=== PATIENT | female | born 1975 | race African-American/Black ===

== ENCOUNTER 2021-12-31 11:27 | Day surgery (SDC) | payer BC ==
[2021-12-31 11:53] VITALS: BMI 30.6
[2021-12-31 13:19] VITALS: BP 112/78; PULSE 75; TEMP 97.8
== END 2021-12-31 13:35 | disposition home or self-care (01) ==
LOC: FASU-ENDO 11:27
PROVIDERS: ATTEND Internal Medicine Gastroenterology
PROC: 0DBL8ZX Excision of Transverse Colon, Via Natural or Artificial Opening Endoscopic, Diagnostic (ICD-10-PCS; 2021-12-31)
PROC: 0DBN8ZX Excision of Sigmoid Colon, Via Natural or Artificial Opening Endoscopic, Diagnostic (ICD-10-PCS; 2021-12-31)
PROC: 0DBP8ZX Excision of Rectum, Via Natural or Artificial Opening Endoscopic, Diagnostic (ICD-10-PCS; 2021-12-31)
PROC: 0DBM8ZX Excision of Descending Colon, Via Natural or Artificial Opening Endoscopic, Diagnostic (ICD-10-PCS; 2021-12-31)
PROC: 0DBH8ZX Excision of Cecum, Via Natural or Artificial Opening Endoscopic, Diagnostic (ICD-10-PCS; 2021-12-31)
PROC: 0DBK8ZX Excision of Ascending Colon, Via Natural or Artificial Opening Endoscopic, Diagnostic (ICD-10-PCS; principal; 2021-12-31 12:25)
DX: Z87.19 Personal history of other diseases of the digestive system (principal); K64.0 First degree hemorrhoids; K63.89 Other specified diseases of intestine
CPT/HCPCS: 88305-TC

== ENCOUNTER 2022-03-18 08:57 | Day surgery (SDC) | payer BC ==
[2022-03-14 13:35] VITALS: BMI 30.6
[2022-03-18] MEDS ORDERED: LIDOCAINE HCL/PF 2% SDV 5ML VIAL ONE (09:01)
[2022-03-18] MEDS ORDERED: PROPOFOL 20 ML ONE ×4 (09:01)
[2022-03-18 10:37] VITALS: TEMP 97.2
[2022-03-18 10:46] VITALS: BP 121/90; PULSE 84
== END 2022-03-18 11:03 | disposition home or self-care (01) ==
LOC: FASU-ENDO 08:57
PROVIDERS: ATTEND Internal Medicine Gastroenterology
PROC: 0DB68ZX Excision of Stomach, Via Natural or Artificial Opening Endoscopic, Diagnostic (ICD-10-PCS; 2022-03-18)
PROC: 0DB48ZX Excision of Esophagogastric Junction, Via Natural or Artificial Opening Endoscopic, Diagnostic (ICD-10-PCS; 2022-03-18)
PROC: 0DB98ZX Excision of Duodenum, Via Natural or Artificial Opening Endoscopic, Diagnostic (ICD-10-PCS; principal; 2022-03-18 10:12)
DX: K29.50 Unspecified chronic gastritis without bleeding (principal); K20.90 Esophagitis, unspecified without bleeding; R10.13 Epigastric pain
CPT/HCPCS: 88305-TC; 88342-TC

== ENCOUNTER 2024-05-17 09:14 | Day surgery (SDC) | payer BC ==
[2024-05-15 17:50] VITALS: BMI 28.3
[2024-05-17 09:50] VITALS: RESP 18
[2024-05-17] MEDS ORDERED: LIDOCAINE HCL/PF 2% SDV 5ML VIAL ONE (10:04)
[2024-05-17 10:44] VITALS: PULSE 84; TEMP 98.1
[2024-05-17 11:20] VITALS: BP 116/76
== END 2024-05-17 11:52 | disposition home or self-care (01) ==
LOC: FASU-ENDO 09:14
PROVIDERS: ATTEND Internal Medicine Gastroenterology
PROC: 0DBL8ZX Excision of Transverse Colon, Via Natural or Artificial Opening Endoscopic, Diagnostic (ICD-10-PCS; 2024-05-17)
PROC: 0DBN8ZX Excision of Sigmoid Colon, Via Natural or Artificial Opening Endoscopic, Diagnostic (ICD-10-PCS; 2024-05-17)
PROC: 0DBP8ZX Excision of Rectum, Via Natural or Artificial Opening Endoscopic, Diagnostic (ICD-10-PCS; 2024-05-17)
PROC: 0DBB8ZX Excision of Ileum, Via Natural or Artificial Opening Endoscopic, Diagnostic (ICD-10-PCS; 2024-05-17)
PROC: 0DBM8ZX Excision of Descending Colon, Via Natural or Artificial Opening Endoscopic, Diagnostic (ICD-10-PCS; 2024-05-17)
PROC: 0DBH8ZX Excision of Cecum, Via Natural or Artificial Opening Endoscopic, Diagnostic (ICD-10-PCS; 2024-05-17)
PROC: 0DBK8ZX Excision of Ascending Colon, Via Natural or Artificial Opening Endoscopic, Diagnostic (ICD-10-PCS; principal; 2024-05-17 10:05)
DX: Z12.11 Encounter for screening for malignant neoplasm of colon (principal); K52.89 Other specified noninfective gastroenteritis and colitis; K64.1 Second degree hemorrhoids; K63.89 Other specified diseases of intestine; Z87.19 Personal history of other diseases of the digestive system
CPT/HCPCS: 81025; 82962; 88305-TC